=== PATIENT | female | born 1930 | race Caucasian/White ===

== ENCOUNTER 2016-12-11 15:25 | Emergency (ER) | payer MEDICARE, MEDICAID ==
[2016-12-11 15:25] VITALS: BMI 28.5
[2016-12-11 15:32] VITALS: BP 161/86; PULSE 84; RESP 18; TEMP 98.2; O2SAT 98
--- NOTE | 2016-12-11 16:22 | ED PDOC ---
HPI: Trauma/Fall - HPI Time Seen by Provider: 12/11/16 15:38 Chief Complaint (Nursing): Back Pain History Per: Patient (states that she fell onto her buttock as she was trying to sit down onto wheelchair. She also hit the back of her head lightly. No LOC. No KAHN or dizziness) History/Exam Limitations: no limitations Onset/Duration Of Symptoms: Sudden Onset Location Of Injury: Right: Buttock, Left: Buttock Severity: Mild Past Medical History Reviewed: Historical Data, Nursing Documentation, Vital Signs Vital Signs: Last Vital Signs Temp 98.2 F 12/11/16 15:30 Pulse 84 12/11/16 15:30 Resp 18 12/11/16 15:30 BP 161/86 H 12/11/16 15:30 Pulse Ox 98 12/11/16 16:27 - Medical History PMH: Depression, HTN - Surgical History Surgical History: No Surg Hx - Family History Family History: States: No Known Family Hx - Living Arrangements Living Arrangements: Care Home/Assist Lvng - Immunization History Hx Tetanus Toxoid Vaccination: No Hx Influenza Vaccination: No Hx Pneumococcal Vaccination: No - Allergies Allergies/Adverse Reactions: Allergies Allergy/AdvReac Type Severity Reaction Status Date / Time vancomycin Allergy RASH Verified 12/11/16 15:29 Review of Systems ROS Statement: Except As Marked, All Systems Reviewed And Found Negative Constitutional: Negative for: Fever Cardiovascular: Negative for: Chest Pain Respiratory: Negative for: Cough, Shortness of Breath Gastrointestinal: Negative for: Nausea, Vomiting, Diarrhea Musculoskeletal: Positive for: Back Pain (lower ) Neurological: Negative for: Weakness, Numbness, Incoordination, Change in Speech , Confusion, Seizures, Altered Mental Status, Headache, Dizziness Physical Exam - Reviewed Nursing Documentation Reviewed: Yes Vital Signs Reviewed: Yes - Physical Exam Appears: Positive for: Well, Non-toxic, No Acute Distress Head Exam: Positive for: ATRAUMATIC, NORMAL INSPECTION, NORMOCEPHALIC Skin: Positive for: Normal Color, Warm, DRY Eye Exam: Positive for: EOMI, Normal appearance, PERRL ENT: Positive for: Normal ENT Inspection Neck: Positive for: Normal, Painless ROM Cardiovascular/Chest: Positive for: Regular Rate, Rhythm Respiratory: Positive for: CNT, Normal Breath Sounds Gastrointestinal/Abdominal: Positive for: Normal Exam, Bowel Sounds, Soft Back: Positive for: Normal Inspection Extremity: Positive for: Normal ROM Neurologic/Psych: Positive for: Alert, Oriented - ECG O2 Sat by Pulse Oximetry: 98 - Radiology X-Ray: Viewed By Me, Read By Radiologist X-Ray Interpretation: No Acute Disease Disposition - Clinical Impression Clinical Impression: Fall - Patient ED Disposition Is Patient to be Admitted: No Doctor Will See Patient In The: Office Counseled Patient/Family Regarding: Diagnosis, Need For Followup - Disposition Disposition: Routine/Home Disposition Time: 18:31 Condition: STABLE Instructions: Fall Prevention for Older Adults (ED) Print Language: BANGLADESHI - CHRISTINA Present On Arrival: Falls Or Trauma
--- NOTE | 2016-12-11 17:26 | RAD ---
PROCEDURE: Radiographs of the pelvis. HISTORY: fall onto buttocks from w/c COMPARISON: CT abdomen and pelvis performed 01/01/14 FINDINGS: Inadequate lateral view is not provided. Diffuse osseous demineralization severely limits evaluation for acute fracture. Metallic plate and screw fixation of the right femur. No acute displaced fracture appreciated on the limited submitted views. Images were obtained with the patient in an oblique position. Dense vascular calcifications. Soft tissues appear unremarkable. IVC filter. IMPRESSION: Markedly limited study as above. Diffuse osseous demineralization severely limits evaluation for acute fracture. Dedicated cross-sectional imaging may be considered for further evaluation if this is of high clinical suspicion. No acute displaced fracture appreciated. Postsurgical changes of the right hip. IVC filter.
--- NOTE | 2016-12-11 17:29 | RAD ---
PROCEDURE: Radiographs of the Lumbar Spine. HISTORY: fall onto buttocks from w/c COMPARISON: CT abdomen and pelvis performed 01/01/14 FINDINGS: Alignment appears satisfactory. Multilevel degenerative changes including osteophyte formation and intervertebral disc space narrowing. Probable vacuum disc phenomenon at L4-L5. Facet hypertrophy. No acute displaced fracture identified. IVC filter. Moderate constipation. Partially imaged postsurgical changes of the right hip. IMPRESSION: Osseous demineralization. Degenerative changes. No acute displaced fracture identified. If high clinical index of suspicion, cross-sectional imaging may be considered for further evaluation. IVC filter. Moderate constipation.
--- NOTE | 2016-12-12 12:28 | RAD ---
Indication: possible fracture right pubic ramus Pelvis with obliques Comparison: Pelvis radiographs performed 12/11/16 at 1620 hrs Findings: Diffuse osseous demineralization limits evaluation for acute fracture lines. Evidence of irregularity and possible nondisplaced fracture involving the inferior right pubic ramus at the junction of the pubic symphysis. Metallic plate and screw fixation of the right femur. No acute displaced fracture identified. No evidence of dislocation. Moderate constipation. Soft tissues appear unremarkable. IVC filter. Vascular calcifications. Impression: Irregularity and possible nondisplaced fracture involving the right inferior pubic ramus at the junction of the pubic symphysis. Recommend clinical correlation and dedicated cross-sectional imaging if indicated for further evaluation. Study has been marked for PA review and findings discussed with DENI Figueroa on 12/12/16 12:26 a.m..
== END 2016-12-11 19:45 ==
LOC: H.ER 15:25
DX: M54.9 Dorsalgia, unspecified (principal); R52 Pain, unspecified; R10.2 Pelvic and perineal pain; W19.XXXA Unspecified fall, initial encounter; Y92.89 Other specified places as the place of occurrence of the external cause; F32.9 Major depressive disorder, single episode, unspecified; I10 Essential (primary) hypertension